=== PATIENT | male | born 1990 | race Caucasian/White ===

== ENCOUNTER 2018-11-11 12:45 | Emergency (ER) | payer BC, SELFPAY ==
--- NOTE | 2018-11-11 12:44 | ED.GENADUL_ITS ---
Discharge Plan Disposition Patient Disposition: HOME Condition: Good Discharge Details Chief Complaint: Orthopedic Clinical Impression: Degloving injury of toe Primary Care Provider: Kyle Keita ED Provider: Jimenez Amanda Home Meds and New Rx's Prescriptions: New cephalexin [Keflex] 500 mg capsule 500 mg PO QID 10 Days Qty: 40 RF: 0 acetaminophen [Mapap Extra Strength] 500 MG tablet 1,000 mg PO Q6H 5 Days Qty: 60 RF: 0 oxycodone-acetaminophen [Percocet] 7.5-325 mg tablet 1 tab PO Q8H PRN (Reason: pain) Qty: 10 RF: 0 silver sulfadiazine [Silvadene] 1 % cream 1 applic TP BID Qty: 50 RF: 0 Discontinued amoxicillin 875 MG tablet 875 mg PO BID Qty: 20 RF: 0 tobramycin [Tobrex] 5 ML drops 5 ml Ophthalmic DIRECTED Qty: 1 RF: 0 Discharge Instructions Instructions: Skin Avulsion (ED) Additional Instructions: Please keep your toe bandaged. Please change the bandaging every 12 hours with a nonadhesive gauze and Silvadene cream. Take the antibiotic as directed. Take Tylenol and Motrin [id number] for pain, however if you need something extra you can take the Percocet. This does have Tylenol in it and so do not take it with Tylenol. You will be contacted by [facility] for surgical options. If you do not hear back from them in the next 2 to 3 days please contact us immediately. If you notice any worsening of your symptoms, or any new symptoms such as vomiting, diarrhea, fever, chills, shortness of breath, chest pain, numbness, weakness, or fainting , please return immediately to the emergency department for reevaluation. Please follow up with your primary care provider as soon as possible for reassessment and reevaluation. As always, it was a pleasure participating in your medical care today. Referrals: Kyle Keita MD [Primary Care Provider] - Medical Decision Making This is a 28-year-old male who presents for evaluation after a lawnmower ran ov er his right toe. He shaved a notable component of his right great toe off. There is evidence of dirt and grass in the area. Tetanus is not up-to-date. The patient does demonstrate active bleeding albeit mild. He is unable to flex and extend his toe. However he is able to wiggle his 4 other toes. Due to the nature of the wound we will give Ancef and gentamicin. We will update his tetanus and get x-rays. Dr. Rodriguez has been contacted. He is following the case closely. 3:28 PM X-ray shows no evidence of severe gross fracture. It is been reviewed by orthopedics Dr. Rodriguez, as well as radiology. The patient has been given Ancef and gentamicin. We discussed the case with Dr. Rodriguez, and secondary to these significant and notable amount of remove skin, he feels that his skin graft is most likely required. He feels that the patient will be discharged home with close follow-up with [facility]. We are still pending callback from plastics at this time. Orthopedics does recommend Keflex for home use. 4:06 PM I have discussed the case with plastics from [facility], Dr. Carbone, he agrees with the need for close follow-up. They will contact the patient for close follow-up this coming Wednesday. I did give them the patient's preferred phone number. They also recommended Silvadene and bandage changes twice daily. I discussed with the patient red flags which to return the importance of prompt follow-up. I have extensively reviewed the treatment plan and discharge instructions with the patient and their family. I have addressed all patient concerns at this time. The patient and family was made aware of what symptoms to monitor for that would warrant a return to the emergency department. Discussed the plan with the patient and family, they demonstrate verbal understanding and agreement with our assessment and plan at this time. RIGHT GREAT TOE: Three views were obtained. There is an apparent soft tissue injury of the great toe and bandage material somewhat obscures the area. No gross fracture identified. However there is some deformity of the tuft of the distal phalanx and the possibility of bone loss at this site is not absolutely excluded. Ordered By: Jimenez Amanda DO [facility] General Date/Time Provider Initiated Documentation: 11/11/18 12:55 . HPI Narrative: This is a 28-year-old male with no past medical history who presents today for evaluation of trauma to his right great toe. Patient was mowing, he was on an embankment when the lawnmower slipped and caught his right great toe. He chopped the edge of it off, EMS arrived gave fentanyl for pain, and brought into the ER for further evaluation. Patient complains of no other injury or site of pain. He denies any numbness or tingling and states that he feels everything in the toe. No other modifying factors. Uncertain of tetanus status per patient. He denies IV or illicit drug use, recent surgeries, pertinent family history. Related Data Home Medications Medication Instructions Recorded Confirmed acetaminophen [Mapap Extra 1,000 mg PO Q6H 5 Days #60 tab 11/11/18 Strength] cephalexin [Keflex] 500 mg PO QID 10 Days #40 cap 11/11/18 oxycodone-acetaminophen [Percocet] 1 tab PO Q8H PRN #10 tab 11/11/18 silver sulfadiazine [Silvadene] 1 applic TP BID #50 gm 11/11/18 Previous Rx's Medication Instructions Recorded acetaminophen [Mapap Extra 1,000 mg PO Q6H 5 Days #60 tab 11/11/18 Strength] cephalexin [Keflex] 500 mg PO QID 10 Days #40 cap 11/11/18 oxycodone-acetaminophen [Percocet] 1 tab PO Q8H PRN #10 tab 11/11/18 silver sulfadiazine [Silvadene] 1 applic TP BID #50 gm 11/11/18 Allergies Allergy/AdvReac Type Severity Reaction Status Date / Time No Known Allergies Allergy Unverified 08/24/15 13:55 Review of Systems Review of Systems All systems reviewed & are unremarkable except as noted in HPI and below PFSH Social History Smoking/Tobacco Use Status: Never Drug use: Never Exam Narrative Exam Narrative: 1.Const: Well-nourished, Well-developed, appearing stated age 2.Eyes: PERRL, no conjunctival injection, and symmetrical lids. 3.ENT: Atraumatic external nose and ears. Moist MM. Neck: Symmetric, trachea midline, No thyromegaly. 4.CVS: +S1/S2, No murmurs or gallops. Peripheral pulses 2+ and equal in all extremities. Brisk capillary refill in all extremities. 5.RESP: Unlabored respiratory effort. Clear to auscultation bilaterally. No wheezes rales or rhonchi 6.GI: Soft, Nontender/Nondistended, No hepatosplenomegaly. No guarding or rebound. 7.MSK: Normocephalic, No cyanosis or clubbing, right lower extremity demonstrates a great toe on the right foot that has been shaved off roughly 8 mm in depth from the distal tip towards the interphalangeal joint on the medial aspect of the great toe. Active bleeding is present. Bony structures and tendon structures are visible. There is a lateral skew of his toe which is symmetric with the left toe as well. Unable to flex and extend the toe secondary to pain. He is able to wiggle his other toes which all demonstrate intact sensation and brisk capillary refill. Mild bruising at the proximal metatarsal phalangeal joint. Dorsalis pedis and posterior tibial +2 bilaterally. 8.Skin: Warm, Dry. 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 Sensation grossly intact, no focal neurologic deficits. 10.Psych: (AAO) x3. Appropriate mood and affect
[2018-11-11 12:47] VITALS: PULSE 70; RESP 16; TEMP 36.8; O2SAT 148
--- NOTE | 2018-11-11 12:55 | DI.RAD_ITS ---
SYMPTOM/DIAGNOSIS: FOOT VS LAWNMOWER, LACERATION, PAIN RIGHT GREAT TOE: Three views were obtained. There is an apparent soft tissue injury of the great toe and bandage material somewhat obscures the area. No gross fracture identified. However there is some deformity of the tuft of the distal phalanx and the possibility of bone loss at this site is not absolutely excluded.
[2018-11-11] MEDS: Normal Saline 1,000 ML 1000 ML IV (13:02)
[2018-11-11] MEDS: ceFAZolin 2,000 MG in Normal Saline 100 ML 200 MG IVPB (13:02)
[2018-11-11 14:55] LABS: Abs Immature Grans 0.02 k/cumm (0.0-0.09); Absolute Basophil Count 0.02 k/cumm (0.0-0.2); Absolute Eosinophil Count 0.04 k/cumm (0.0-0.7); Absolute Lymphocyte Count 1.57 k/cumm (1.2-3.4); Absolute Monocyte Count 0.59 k/cumm (0.11-0.7); Absolute Neutrophil Count 7.81 k/cumm (1.2-6.7); Basophils % 0.2; Eosinophils % 0.4; Immature Grans % 0.2; Lymphocytes % 15.6; Mean Corp. HGB Concentration 33.3 g/dL (32.0-36.0); Mean Corpuscular Hemoglobin 28.6 pg (27.0-33.0); Mean Corpuscular Volume 85.7 fL (80-95); Mean Platelet Volume 9.5 fL (8.0-11.0); Monocytes % 5.9; Neutrophils % 77.7; Platelet Count 263 x1000/uL (130-400); RBC Distribution Width 12.8 % (11.8-14.1); White Blood Cell Count 10.05 k/cumm (4.4-10.8)
[2018-11-11 15:17] LABS: ALT 17 U/L (12-78); AST 5 U/L (15-37); Albumin 3.8 g/dL (3.4-5.0); Alkaline Phosphatase 79 U/L (46-116); Anion Gap 7.4 mmol/L (3-11); BUN 11 mg/dL (7-18); Bilirubin, Total 0.5 mg/dL (0.2-1.0); CO2 26.6 mmol/L (21.0-32.0); CREATININE 1.06 mg/dL (0.70-1.30); Chloride 105 mmol/L (98-107); Glucose 95 mg/dL (70-100); Potassium 3.9 mmol/L (3.5-5.1); Sodium 139 mmol/L (136-145); Total Protein 7.5 g/dL (6.4-8.2)
[2018-11-11] MEDS: GENTAMICIN 180 MG in Normal Saline 100 ML 116.11 MG IV (15:30)
--- NOTE | 2018-11-11 15:52 | W.ORTHOCONSU ---
Date of service: 11/11/18 Time of Service: 15:52 History of Present Illness Chief Complaint: Left great toe injury Narrative: Noah is a 28-year-old who was mowing his grass. Somehow the mower caught the medial aspect of the right forefoot. He had immediate pain and deformity and a portion of the medial aspect of the right great toe was cut. The emergency department there is notable grass and clippings throughout the toe. The toe was given a digital block and cleaned aggressively. At the time he was in the emergency department I was on the field helping a trauma at the [place] festival and therefore Dr. Amanda obtained pictures for me to evaluate. He performed aggressive debridement.. I was able to look at the pictures after the debridement was performed. In the emergency department I was able see Noah he reports mild pain. He is reluctant to do any motion of the foot. He is hesitant to move the ankle. He reports some numb feeling to the toe. He is unable to flex or extend the toe. He denies any other lacerations or injuries. He denies any other medical issues. No diabetes. No history of vascular disease. He does not smoke. Consult Reason Right great toe degloving/laceration Assessment and Plan (1) Degloving injury of toe: Current visit: Yes Status: Acute Noah is a 28-year-old who suffered a right great toe versus lawnmower injury. This does demonstrate complete soft tissue loss over the medial border of the right great toe. It involves all the soft tissue down to the bone. However, there is very minimal bony involvement. Given the location of the injury it is unlikely that his tendons are compromised although the medial capsular ligaments could be involved. I think the larger issue is the lack of coverage. There are no flaps there is no tissue to cover the exposed bone. I was very honest with Noah and Dr. Amanda this is a plastic surgery case. I do not do any flaps. I also am not sure what flat would be best for this coverage. After thorough irrigation debridement a moist dressing was placed over the foot and this will be sufficient for the next few days. He will be placed on antibiotics. He should have some coverage for anaerobes and was given a dose of gentamicin today in the hospital. He will be sent home with Keflex. We have called in consultation at [facility] but have yet to hear back. We will adjust this plan after discussing the case with them. Review of Systems Review of Systems All systems reviewed & are unremarkable except as noted in HPI and below PFSH Social History Smoking/Tobacco Use Status: Never Drug use: Never Exam Narrative Exam Narrative: Evaluation the right foot shows a well bandaged foot. There is no active drainage seen. He is unable to actively flex and extend the toe but does have pain. He is reluctant to move the remainder toes also reluctant with the ankle up and down. Is also difficult to appreciate given the dressing which was just applied. Given that the dressing was just applied the root was recently cleaned I did not take down the dressings at this time. I did reviewed the pictures with Dr. Amanda and it does demonstrate a radial oblique laceration over the distal aspect of the medial toe. It does not go to the midline and goes all the way to the border of the distal phalanx. There may be some distal phalanx involvement but there is no gross fracture or loose pieces. There is no tissue remaining. There are no flaps and there are no free pieces. Results Last Vital Signs Temp 36.8 C 11/11/18 12:47 Pulse 70 11/11/18 12:47 Resp 16 11/11/18 12:47 Pulse Ox 148 H 11/11/18 12:47 Labs : 11/11/18 14:50 11/11/18 14:50 Laboratory Results - last 24 hr 11/11/18 11/11/18 14:50 14:50 WBC 10.05 RBC 4.90 Hgb 14.0 Hct 42.0 MCV 85.7 MCH 28.6 MCHC 33.3 RDW 12.8 Plt Count 263 MPV 9.5 Immature Gran % 0.2 Neutrophils % 77.7 Lymphocytes % 15.6 Monocytes % 5.9 Eosinophils % 0.4 Basophils % 0.2 Absolute Neutrophils 7.81 H Absolute Lymphocytes 1.57 Absolute Monocytes 0.59 Absolute Eosinophils 0.04 Absolute Basophils 0.02 Sodium 139 Potassium 3.9 Chloride 105 Carbon Dioxide 26.6 Anion Gap 7.4 BUN 11 Creatinine 1.06 Estimated GFR/1.73 m2 >= 60.00 Glucose 95 Calcium 9.0 Total Bilirubin 0.5 AST 5 L ALT 17 Alkaline Phosphatase 79 Total Protein 7.5 Albumin 3.8 Imaging Imaging Studies: X-ray of the right great toe demonstrates soft tissue loss over the medial aspect. There is no notable bony irregularity. There are a few small flakes seen which could be from the bone itself but no gross fracture.
[2018-11-11 16:53] VITALS: BP 148/55; PULSE 70; RESP 16; O2SAT 100
== END 2018-11-11 16:38 | disposition home or self-care (01) ==
PROVIDERS: Emergency Provider Student in an Organized Health Care Education/Training Program; PCP Internal Medicine
DX: S91.211A Laceration without foreign body of right great toe with damage to nail, initial encounter (principal); W28.XXXA Contact with powered lawn mower, initial encounter
CPT/HCPCS: 36415; 80053; 90471; 96361; 96365; 96367; 99252; 99284; 73660; 85025; E0114; J1580

== ENCOUNTER 2019-11-24 14:48 | Outpatient (REF) | payer BC, SELFPAY ==
[2019-11-24 21:47] LABS: FREE T4 0.93 ng/dL (0.76-1.46); TSH 1.63 uIU/mL (0.36-3.74)
== END 2019-11-24 15:08 ==
LOC: NCHCN 14:48
PROVIDERS: PCP Internal Medicine; Visit Provider Internal Medicine
DX: E66.9 Obesity, unspecified (principal); Z83.49 Family history of other endocrine, nutritional and metabolic diseases
CPT/HCPCS: 84439; 84443